=== PATIENT | female | born 1985 | race Two or more races ===

== ENCOUNTER 2019-08-08 10:26 | Observation (INO) | payer MEDICAID | END 2019-08-08 12:00 | disposition home or self-care (01) | DRG 563 | LOC: LDRP 10:26 | PROVIDERS: ADMIT Obstetrics & Gynecology; ATTEND Obstetrics & Gynecology | DX: O60.03 Preterm labor without delivery, third trimester (principal); Z3A.29 29 weeks gestation of pregnancy | CPT/HCPCS: 59025; 81002; G0378 ==

== ENCOUNTER 2019-08-15 14:10 | Observation (INO) | payer MEDICAID ==
[2019-08-15] MEDS ORDERED: PREN-96 PO (14:37)
== END 2019-08-15 15:05 | disposition home or self-care (01) | DRG 566 ==
LOC: LDRP 14:10
PROVIDERS: ADMIT Obstetrics & Gynecology; ATTEND Obstetrics & Gynecology
DX: O26.873 Cervical shortening, third trimester (principal); O60.03 Preterm labor without delivery, third trimester; Z3A.30 30 weeks gestation of pregnancy
CPT/HCPCS: 59025; 81002; G0378

== ENCOUNTER 2019-08-22 08:40 | Observation (INO) | payer MEDICAID ==
[~2019-08-22 08:40] MED LIST: PREN-96 PO
== END 2019-08-22 09:40 | disposition home or self-care (01) | DRG 566 ==
LOC: LDRP 08:40
PROVIDERS: ADMIT Obstetrics & Gynecology; ATTEND Obstetrics & Gynecology
DX: O26.873 Cervical shortening, third trimester (principal); O60.03 Preterm labor without delivery, third trimester; O09.523 Supervision of elderly multigravida, third trimester; Z3A.31 31 weeks gestation of pregnancy
CPT/HCPCS: 59025; 81002; G0378

== ENCOUNTER 2019-08-31 09:48 | Observation (INO) | payer MEDICAID | END 2019-09-05 10:30 | disposition home or self-care (01) | DRG 563 | LOC: LDRP 09:48 → UNDOADMOB 09:48 → LDRP 09-05 09:10 | PROVIDERS: ADMIT Obstetrics & Gynecology; ATTEND Obstetrics & Gynecology | DX: O60.03 Preterm labor without delivery, third trimester (principal); O09.513 Supervision of elderly primigravida, third trimester; Z3A.32 32 weeks gestation of pregnancy | CPT/HCPCS: 59025; 81002; G0378 ==

== ENCOUNTER 2019-09-09 17:05 | Observation (INO) | payer MEDICAID ==
[2019-09-09 18:24] LABS: Urine Bacteria FEW /hpf (None Seen); Urine Blood 2+ /uL (Negative); Urine Mucus FEW (None Seen); Urine Specific Gravity 1.024 (1.001-1.035); Urine WBC 112 /hpf (0 - 5)
== END 2019-09-09 18:54 | disposition home or self-care (01) | DRG 566 ==
LOC: LDRP 17:05
PROVIDERS: ADMIT Obstetrics & Gynecology; ATTEND Obstetrics & Gynecology
DX: O23.40 Unspecified infection of urinary tract in pregnancy, unspecified trimester (principal); Z3A.00 Weeks of gestation of pregnancy not specified
CPT/HCPCS: 59025; 81001; 81002; G0378

== ENCOUNTER 2019-09-14 08:30 | Observation (INO) | payer MEDICAID | END 2019-09-14 09:35 | disposition home or self-care (01) | DRG 566 | LOC: LDRP 08:30 | PROVIDERS: ADMIT Specialist; ATTEND Specialist | DX: O26.873 Cervical shortening, third trimester (principal); O60.03 Preterm labor without delivery, third trimester; Z3A.35 35 weeks gestation of pregnancy; Z87.891 Personal history of nicotine dependence | CPT/HCPCS: 59025; 81002; G0378 ==

== ENCOUNTER 2019-09-21 08:27 | Observation (INO) | payer MEDICAID ==
[~2019-09-21] VITALS: Ht 154.9 cm; Wt 110.7 kg
== END 2019-09-21 09:35 | disposition home or self-care (01) | DRG 563 ==
LOC: LDRP 08:27
PROVIDERS: ADMIT Specialist; ATTEND Specialist
DX: O60.03 Preterm labor without delivery, third trimester (principal); O26.873 Cervical shortening, third trimester; Z3A.36 36 weeks gestation of pregnancy; Z87.891 Personal history of nicotine dependence
CPT/HCPCS: 59025; 81002; G0378

== ENCOUNTER 2019-10-23 15:35 | Observation (INO) | payer MEDICAID | END 2019-10-23 17:45 | disposition home or self-care (01) | DRG 560 | LOC: LDRP 15:35 | PROVIDERS: ADMIT Specialist; ATTEND Specialist | DX: O48.0 Post-term pregnancy (principal); Z37.0 Single live birth; O09.523 Supervision of elderly multigravida, third trimester; Z3A.40 40 weeks gestation of pregnancy | CPT/HCPCS: 59025; 76818; 81002; G0378 ==

== ENCOUNTER 2019-10-24 15:00 | Observation (INO) | payer MEDICAID | END 2019-10-24 16:50 | disposition home or self-care (01) | DRG 566 | LOC: LDRP 15:00 | PROVIDERS: ADMIT Specialist; ATTEND Specialist | DX: O48.0 Post-term pregnancy (principal); O46.93 Antepartum hemorrhage, unspecified, third trimester; O62.9 Abnormality of forces of labor, unspecified; Z3A.40 40 weeks gestation of pregnancy; Z87.891 Personal history of nicotine dependence | CPT/HCPCS: 59025; 81002; G0378 ==

== ENCOUNTER 2019-10-25 10:13 | Observation (INO) | payer MEDICAID | END 2019-10-25 12:52 | disposition home or self-care (01) | DRG 566 | LOC: LDRP 10:13 | PROVIDERS: ADMIT Obstetrics & Gynecology; ATTEND Obstetrics & Gynecology | DX: O48.0 Post-term pregnancy (principal); Z3A.41 41 weeks gestation of pregnancy; Z87.891 Personal history of nicotine dependence | CPT/HCPCS: 59025; 76818; 81002; G0378 ==

== ENCOUNTER 2019-10-27 21:26 | Observation (INO) | payer MEDICAID ==
[~2019-10-27] VITALS: Ht 154.9 cm; Wt 118.4 kg
[2019-10-27] MEDS ORDERED: TERBUTALINE SULFATE 1 MG/ML 1ML VIAL SC PRN (23:30)
== END 2019-10-27 23:45 | disposition home or self-care (01) | DRG 566 ==
LOC: LDRP 21:26
PROVIDERS: ADMIT Specialist; ATTEND Specialist
DX: O62.9 Abnormality of forces of labor, unspecified (principal); N89.8 Other specified noninflammatory disorders of vagina; O34.63 Maternal care for abnormality of vagina, third trimester; Z3A.41 41 weeks gestation of pregnancy; Z87.891 Personal history of nicotine dependence
CPT/HCPCS: 59025; 76818; 81002; G0378

== ENCOUNTER 2019-10-29 13:20 | Inpatient (IN) | payer MEDICAID ==
[~2019-10-29] VITALS: Ht 154.9 cm; Wt 119.3 kg
[2019-10-29] MEDS ORDERED: LACT. RINGERS/OXYTOCIN 20UNITS 1,000 ML IV SCH (16:37)
[2019-10-29] MEDS ORDERED: LACTATED RINGER'S 1,000 ML IV SCH (16:37)
[2019-10-29] MEDS ORDERED: WITCH HAZEL-GLYCERIN PAD TOP PRN (16:45)
[2019-10-29] MEDS ORDERED: PHISODERM TOP SOLN 240ML BTL TOP PRN (16:45)
[2019-10-29] MEDS ORDERED: LIDOCAINE 2%HCL (LOCAL ANESTH.) INJ 20ML MDV ID ONE (16:45)
[2019-10-29] MEDS ORDERED: DERMOPLAST 60ML BOTTLE TOP PRN (16:45)
[2019-10-29] MEDS ORDERED: miSOPROStol 50 MCG per PRE-CUT 1/2 TAB PO PRN (17:00)
[2019-10-29 17:26] LABS: Basophils # (auto) 0.1 10 ^3/uL (0-0.2); Basophils % (auto) 0.3 % (0.0-2.0); Eosinophils # (auto) 0 10 ^3/uL (0-0.8); Eosinophils % (auto) 0.2 % (0.0-7.0); Hematocrit 35.9 % (36.0-46.0); Hemoglobin 12.3 g/dL (12.2-16.2); Lymphocytes # (auto) 2.1 10 ^3/uL (0.4-5.4); Lymphocytes % (auto) 10.9 % (10.0-50.0); Mean Corpuscular Hemoglobin 29.3 pg (28.0-32.0); Mean Corpuscular Hgb Conc. 34.2 g/dL (32.0-36.0); Mean Corpuscular Volume 85.8 fL (80.0-100.0); Monocytes # (auto) 1.2 10 ^3/uL (0-1.3); Monocytes % (auto) 6.4 % (0.0-12.0); Neutrophils # (auto) 15.5 10 ^3/uL (1.6-8.6); Neutrophils % (auto) 82.2 % (37.0-80.0); Platelet Count (auto) 197 10^3/uL (140-450); Red Blood Cells 4.19 10^6/uL (4.0-5.20); Red Cell Distribution Width 13.5 % (11.8-14.3); White Blood Cell 18.9 10^3/uL (4.4-10.8)
[2019-10-29 17:39] LABS: INR 0.91 (0.9-1.15); Partial Thromboplastin Time 25.9 sec (23.64-32.05)
[2019-10-29 17:48] LABS: Albumin 2.5 g/dL (3.4-5.0); Calcium 8.7 mg/dL (8.5-10.1); Potassium 3.9 mmol/L (3.5-5.1)
[2019-10-29 17:51] LABS: BUN/Creatinine Ratio 12.9; Bilirubin, Total 0.2 mg/dL (0.2-1.0)
[2019-10-29 18:05] LABS: Urine Bacteria FEW /hpf (None Seen); Urine Blood 2+ /uL (Negative); Urine Specific Gravity 1.009 (1.001-1.035); Urine WBC 184 /hpf (0 - 5)
[2019-10-29 18:15] LABS: Alcohol, Urine < 3.0 mg/dL (0-5); Amphetamine Screen, Urine NEGATIVE (NEGATIVE); Barbiturate Scree,Urine NEGATIVE (NEGATIVE); Benzodiazephine Screen, Urine NEGATIVE (NEGATIVE); Cannabinoid Screen, Urine NEGATIVE (NEGATIVE); Cocaine Screen, Urine NEGATIVE (NEGATIVE); Opiate Scree,Urine NEGATIVE (NEGATIVE); Phencyclidine Screen, Urine NEGATIVE (NEGATIVE)
[2019-10-29] MEDS ORDERED: BUTORPHANOL TARTRATE 2 MG/1 ML VIAL ONE (19:37)
[2019-10-29] MEDS ORDERED: BUTORPHANOL TARTRATE 2 MG/1 ML VIAL IV PRN ×2 (19:45)
[2019-10-30] MEDS: IBUPROFEN 600 MG TAB PO PRN ×4 (02:58→20:11)
[2019-10-30 03:00] VITALS: BP 117/60
[2019-10-30 07:18] VITALS: BP 111/59
[2019-10-30] MEDS ORDERED: DOCUSATE CALCIUM 240 MG CAP PO SCH (10:00)
[2019-10-30 13:21] VITALS: BP_SYST 102; BP_SYST 107; BP_DIAS 51
[2019-10-30 15:12] VITALS: BP 122/64
[2019-10-30 19:00] VITALS: BP 117/58
[2019-10-30] MEDS: ACETAMINOPHEN 325 MG TAB PO PRN ×2 (19:09→23:22)
[2019-10-30 22:43] VITALS: BP 114/80
[2019-10-31 02:30] VITALS: BP 124/66
[2019-10-31 05:06] LABS: RPR Non Reactive (Non Reactive)
[2019-10-31 06:30] VITALS: BP 120/54
[2019-10-31] MEDS: IBUPROFEN 600 MG TAB PO PRN (06:34)
== END 2019-10-31 09:45 | disposition home or self-care (01) | DRG 560 ==
LOC: LDRP 13:20 → OBSVTOIN 16:30 → LDRP 16:34
PROVIDERS: ADMIT Specialist; ATTEND Specialist
PROC: 10E0XZZ Delivery of Products of Conception, External Approach (ICD-10-PCS; principal; 2019-10-29)
PROC: 0HQ9XZZ Repair Perineum Skin, External Approach (ICD-10-PCS; 2019-10-29)
PROC: 10907ZC Drainage of Amniotic Fluid, Therapeutic from Products of Conception, Via Natural or Artificial Opening (ICD-10-PCS; 2019-10-29)
DX: O48.0 Post-term pregnancy (principal); O70.0 First degree perineal laceration during delivery; Z37.0 Single live birth; Z3A.41 41 weeks gestation of pregnancy
CPT/HCPCS: 36415; 59025; 59409; 76818; 80053; 80307; 81001; 81002; 84112; 85025; 85610; 85730; 86592; 86850; 86900; 86901; 94760; 96361; 96365; 96366; 96374; G0378; J2590